=== PATIENT | female | born 1980 | race African-American/Black ===

== ENCOUNTER 2016-08-02 15:12 | Emergency (ER) | payer OTHER ==
[2016-08-02 15:25] VITALS: BP 119/82; BMI 22.8
[2016-08-02] MEDS ORDERED: TORADOL 30 MG VIAL IM ONE (15:58)
--- NOTE | 2016-08-02 15:58 | DR.EXTPAIN ---
HPI - Time seen Time seen: 15:50 - PCP Primary Care Physician: JAVY - Complaint/Symptoms Chief Complaint Doctor Comments: Patient admits to a history of rheumatoid arthritis in most joints, pain has increased in left wrist. Pain level 8.10m worse with motion. Present medication is not working (meloxicam 7.5) Chief Complaint:: LEFT WRIST PAIN. DENIES INJURY. PT. WENT TO SEE DR. COLÓN ON WEDNESDAY & SHE STATES HE DIDN'T DO AN X-RAY OR ANYTHING. - Source History Provided: Patient - Mode of arrival Mode of Arrival: Ambulatory - Timing Onset of Chief Complaint: 07/29/16 PMH - PMH Past Medical History: Yes Past Medical History: Headaches Past Medical History Comment: CARPAL BATSHEVA, TENDONITIS Past Surgical History: Yes Surgical History: , HUM[employer] SERVICES C[employer]IST Surgery, Ortho Surgery - Family History History of Family Medical Conditions: Yes Family Medical History: Diabetes Mellitus, Hypertension - Social History Does patient currently use any type of tobacco product: Yes Have you used tobacco products in the last 12 months: Yes Type of Tobacco Use: Cigarettes Does any household member use tobacco: Yes Alcohol Use: Heavy Do you use any recreational Drugs:: Yes (MARIJUANA) Lives With: Family Lives Where: Home - infectious screening In the last 2 months have you had wt loss of >10#?: NO Have you had fever, night sweats or hemotysis?: No Have you traveled outside the country in the last 6 months?: No Isolation: Standard ROS - Review of Systems Constitutional: No Symptoms Reported Eyes: No Symptoms Reported ENTM: No Symptoms Reported Respiratoy: No Symptoms Reported Cardiovascular: No Symptoms Reported Gastrointestinal/Abdominal: No Symptoms Reported Genitourinary: No Symptoms Reported Neurological: No Symptoms Reported Musculoskeletal: No Symptoms Reported Integumentary: No Symptoms Reported Hematologic/Lymphatic: No Symptoms Reported Endocrine: No Symptoms Reported Psychiatric: No Symptoms Reported All Other Systems: Reviewed and Negative PE - Vital Signs Vitals: Temperature 98.6 F Pulse Rate 115 Respiratory Rate 17 Blood Pressure [Left Arm] 122/81 Blood Pressure 119/82 O2 Sat by Pulse Oximetry 98 - General Limitations: No Limitations General Appearance: Alert - Head Head Exam: Normal Inspection, Atraumatic - Eyes Eye exam: Normal Appearance, PERRL, EOMI - ENT ENT Exam: Normal Exam - Neck Neck Exam: Normal Inspection, Full ROM - Chest Chest Inspection: Normal Inspection - Respiratory Respiratory Exam: Normal Lung Sounds Bilat Respiratory Exam: Bilateral Clear to Auscultation - Cardiovascular Cardiovascular Exam: Regular Rate - Abdominal Exam Abdominal Exam: Normal Inspection, Normal Bowel Sounds Abdominal Tenderness: negative: RUQ, RLQ, LUQ, LLQ, Epigastrium, Suprapubic, Diffuse, Mild, Moderate, Severe, Other - Extremities Extremities Exam: Normal Inspection, Full ROM - Upper Extremities Shoulder Exam: Normal Inspection Arm Exam: Normal Inspection Elbow Exam: Normal Inspection Forearm Exam: Normal Inspection Hand Exam: Normal Inspection, Other (left wrist with minimal edema. good ROM) Neuromotor Exam: Normal Exam Neurosensory Exam: Normal Exam Hand Tendon Exam: Flexor Digitorium Profundus (Location) Upper Ext. Vascular Exam: Capillary Refill - Lower Extremities Hip/Pelvis Exam: Normal Inspection Upper Leg Exam: Normal Inspection Knee Exam: Normal Inspection Lower Leg Exam: Normal Inspection Ankle Exam: Normal Inspection Foot/Toe Exam: Normal Inspection Neurovascular/Tendon Exam: Normal Capillary Refill Gait Exam: Observed and Normal - Back Back Exam: Normal Inspection - Neurological Neurological Exam: Alert, Oriented X3, CN II-XII Intact - Psychiatric Psychiatric Exam: Normal Affect Course - Treatment Treatment: Toradol IM - Reevaluation 1st: Improved - Diagnosis Discharge Problem: Arthralgia Qualifiers: Joint pain location: wrist Laterality: left Qualified Code(s): M25.532 - Pain in left wrist - Discharge Plan Condition: Stable - Follow ups/Referrals Follow ups/Referrals: Terell PALFAOX [Primary Care Provider] - 3 days - Instructions
[2016-08-02] MEDS ORDERED: TORADOL 30 MG VIAL ONE (16:02)
== END 2016-08-02 16:15 | disposition home or self-care (01) ==
LOC: ER 15:19
DX: M25.532 Pain in left wrist (principal)
CPT/HCPCS: 96372; 99282; J1885

== ENCOUNTER → 2016-10-05 | Outpatient (CLI) | payer OTHER ==
--- NOTE | 2016-10-06 07:52 | MRI ---
HISTORY: Back pain, radiculopathy Study: MRI lumbar spine without contrast Comparison: None Technique: Multiplanar multi-sequence MRI of the lumbar spine was obtained. Sagittal T1, sagittal T 2, and stir weighted images, axial T1, and axial T2 images were obtained. Findings: The lumbar spine demonstrates normal alignment with the expected signal characteristics of the bone marrow. The conus of the cord terminates normally. T12 -- L1: No evidence for compressive disc disease. The neural foramina are patent. The joints are normal. L1 -- L2: No evidence for compressive disc disease. The neural foramina are patent. The joints are n ormal. L2 -- L3: No evidence for compressive disc disease. The neural foramina are patent. The joints are n ormal. L3 -- L4: No evidence for compressive disc disease. Neural foramina. The joints are normal. L4 -- L5: There is broad-based disc protrusion which is associated with an annular rent. It contribu sherif along with ligamentous hypertrophy and pedicular shortening to a relative spinal stenosis with m oderate lateral recess narrowing bilaterally right greater than left. L5 -- S1: No evidence for compressive disc disease. The neural foramina are patent the joints are no rmal. IMPRESSION: As above Reported By:
== END ==
LOC: RAD 14:16
PROVIDERS: ATTEND Psychiatry & Neurology Neurology
DX: M54.16 Radiculopathy, lumbar region (principal); R42 Dizziness and giddiness
CPT/HCPCS: 72148; 95819

== ENCOUNTER → 2016-10-21 | Outpatient (CLI) | payer OTHER | LOC: RT 15:12 | PROVIDERS: ATTEND Psychiatry & Neurology Neurology | DX: R42 Dizziness and giddiness (principal) | CPT/HCPCS: 95819 ==